=== PATIENT | male | born 1980 | race American Indian/Alaskan Native ===

== ENCOUNTER 2018-03-07 05:58 | Day surgery (SDC) | payer MEDICARE ==
[~2018-03-07 05:58] MED LIST: NACL 0.9% 1000 ML 1,000 ML IV SCH; VERSED IV NR
[2018-03-07] MEDS ORDERED: VANCOMYCIN/NS 1 GM/250 ML 1 GM/250 ML BAG IV NR (06:00)
[2018-03-07] MEDS ORDERED: NACL 0.9% 1000 ML 1,000 ML IV SCH (06:00)
[2018-03-07 07:09] LABS: Basophils # (Auto) 0.1 K/mm3 (0.0-0.1); Basophils % (Auto) 0.8 % (0.0-1.8); Eosinophils # (Auto) 0.2 K/mm3 (0.0-0.4); Eosinophils % (Auto) 2.3 % (0.0-4.3); Hematocrit 38.4 % (35.5-45.6); Hemoglobin 12.9 gm/dl (11.8-15.2); Lymphocytes # (Auto) 1.4 K/mm3 (1.2-5.4); Mean Corpuscular HGB Conc 34 % (32-34); Mean Corpuscular Hemoglobin 32 pg (28-32); Mean Corpuscular Volume 94 fl (84-94); Monocytes # (Auto) 0.7 K/mm3 (0.0-0.8); Monocytes % (Auto) 7.1 % (0.0-7.3); Platelet Count 152 K/mm3 (140-440); Red Blood Count 4.08 M/mm3 (3.65-5.03); Red Cell Distribution Width 13.9 % (13.2-15.2)
[2018-03-07] MEDS ORDERED: HEPARIN 10,000 UNITS/10 ML ONE (07:19)
[2018-03-07] MEDS ORDERED: MARCAINE 0.5% 30 ML INFILTRATI ONE (07:19)
[2018-03-07] MEDS ORDERED: NACL 0.9% 500 ML 500 ML ONE (07:20)
[2018-03-07 07:21] LABS: Calcium 9.1 mg/dL (8.4-10.2)
[2018-03-07] MEDS ORDERED: XYLOCAINE MPF 2% ONE (07:23)
[2018-03-07] MEDS ORDERED: DIPRIVAN 10 MG/ML IV ONE (07:23)
[2018-03-07] MEDS ORDERED: ZOFRAN ONE (07:24)
[2018-03-07] MEDS ORDERED: DILAUDID ONE ×2 (07:24→09:36)
[2018-03-07] MEDS ORDERED: DECADRON ONE (07:24)
[2018-03-07] MEDS ORDERED: RIFADIN ONE (07:24)
[2018-03-07] MEDS ORDERED: NACL 0.9% 100 ML ONE (07:26)
--- NOTE | 2018-03-07 07:26 | Anesthesia Day of Surgery ---
Anesthesia Day of Surgery - Day of Surgery Patient Examined: Yes Patient H&P Reviewed: Yes Patient is NPO: Yes
--- NOTE | 2018-03-07 07:31 | Anesthesia Consultation ---
Anesthesia Consult and Med Hx Date of service: 03/07/18 - Airway Anesthetic Teeth Evaluation: Good ROM Head & Neck: Adequate Mental/Hyoid Distance: Adequate Mallampati Class: Class IV Intubation Access Assessment: Possibly Difficult - Pulmonary Exam CTA: Yes - Cardiac Exam Cardiac Exam: RRR - Pre-Operative Health Status ASA Pre-Surgery Classification: ASA3 Proposed Anesthetic Plan: General - Pulmonary SOB: Yes (OCCASIONAL SOB W/EXERTION) Hx Sleep Apnea: Yes (NO CPAP) - Cardiovascular System Hx Hypertension: Yes (CHF, HL) - Gastrointestinal Hx Gastroesophageal Reflux Disease: Yes (MILD) - Endocrine Hx Renal Disease: Yes (ESRD) Hx End Stage Renal Disease: Yes - Hematic Hx Anemia: Yes - Other Systems Hx Alcohol Use: No Hx Substance Use: No
[2018-03-07] MEDS ORDERED: SUBLIMAZE IV PRN (07:43)
[2018-03-07] MEDS ORDERED: ZOFRAN IV PRN (07:43)
[2018-03-07] MEDS ORDERED: XYLOCAINE 1% 20 mL ONE (09:19)
[2018-03-07] MEDS ORDERED: PAPAVERINE ONE (09:21)
[2018-03-07] MEDS ORDERED: PROTAMINE SULFATE ONE (09:21)
[2018-03-07] MEDS ORDERED: SODIUM BICARBONATE ONE (09:22)
[2018-03-07] MEDS ORDERED: NITROGLYCERIN SYRINGE 3 ML ONE (09:22)
[2018-03-07] MEDS ORDERED: NACL 0.9% IR ONE ×2 (09:43)
[2018-03-07] MEDS ORDERED: MARCAINE 0.5% INFILTRATI ONE (09:43)
[2018-03-07] MEDS ORDERED: NACL 0.9% 500 ML IRRIGATION ONE (09:43)
[2018-03-07] MEDS ORDERED: XYLOCAINE 1% 20 mL INFILTRATI ONE (09:44)
[2018-03-07] MEDS ORDERED: HEPARIN 10,000 UNITS/10 ML IV ONE (09:45)
[2018-03-07] MEDS ORDERED: NACL 0.9% IV ONE (10:12)
[2018-03-07] MEDS ORDERED: RIFADIN IV ONE (10:14)
[2018-03-07] MEDS ORDERED: NEO SYNEPHRINE/NS Syringe(OR USE) IV ONE (11:13)
--- NOTE | 2018-03-07 11:27 | Short Stay Summary ---
Short Stay Documentation Date of service: 03/07/18 Narrative H&P: See H&P - History H&P: obtained from office - Allergies and Medications Current Medications: Allergies amoxicillin [Amoxicillin] Allergy (Verified 06/25/13 12:22) Rash Home Medications Medication Instructions Recorded Confirmed Last Taken Type Cinacalcet [Sensipar] 30 mg PO QDAY 06/25/13 03/07/18 03/06/18 21:00 History Docusate Sodium [Colace CAP] 100 mg PO BID PRN 06/25/13 03/07/18 06/25/13 16:00 History Furosemide [Furosemide ORAL LIQ] 80 mg PO BID 06/25/13 03/07/18 03/06/18 21:00 History Hydralazine HCl [hydrALAZINE] 100 mg PO Q12H 06/25/13 03/07/18 03/06/18 21:00 History Hydrocodone Bit/Acetaminophen 1 each PO Q6HR PRN 06/25/13 03/07/18 06/25/13 16: 00 History [Vicodin 5/500] Isosorbide Dinitrate 30 mg PO TID 06/25/13 03/07/18 03/06/18 21:00 History Lisinopril [Zestril TAB] 40 mg PO QDAY 06/25/13 03/07/18 03/06/18 21:00 History NIFEdipine XL [Procardia Xl] 60 mg PO QDAY 06/25/13 03/07/18 03/06/18 21:00 History Paricalcitol [Zemplar] 2 mcg PO DAILY 06/25/13 03/07/18 03/06/18 21:00 History Simvastatin 20 mg PO QHS 06/25/13 03/07/18 03/06/18 21:00 History Hydrocodone Bit/Acetaminophen 1 each PO Q6H PRN #60 tablet 06/26/13 03/07/18 Unknown Rx [Lortab 7.5-500 mg] Active Medications Fentanyl (Sublimaze) 50 mcg IV Q5MIN PRN PRN Reason: Pain , Severe (7-10) Stop: 03/07/18 18:00 Vancomycin HCl (Vancomycin/Ns 1 Gm/250 Ml) 1 gm in 250 mls @ 166.667 mls/hr IV PREOP NR; Protocol Stop: 03/07/18 18:00 Last Admin: 03/07/18 07:47 Dose: 166.667 mls/hr Sodium Chloride (Nacl 0.9% 1000 Ml) 1,000 mls @ 100 mls/hr IV DIRECT HARVINDER Last Admin: 03/07/18 07:00 Dose: 100 mls/hr Midazolam HCl (Versed) 2 mg IV PREOP NR Stop: 03/07/18 23:59 Last Admin: 03/07/18 07:43 Dose: 2 mg Ondansetron HCl (Zofran) 4 mg IV ONCE PRN PRN Reason: Nausea And Vomiting Stop: 03/07/18 16:00 - Brief post op/procedure progress note Date of procedure: 03/07/18 Pre-op diagnosis: Complications of Dialysis Access Post-op diagnosis: same Procedure: Revision of Left Arm AV Fistula With Interposition 7 Mm Bovine Graft Anesthesia: JOSEPHINE Surgeon: KALE VAZQUEZ Estimated blood loss: minimal Pathology: list (left arm AV fistula pseudoaneurysm) Specimen disposition: to lab Condition: stable - Disposition Condition at discharge: Good Disposition: [id number] TO HOME OR SELFCARE Short Stay Discharge Plan Activity: other (no heavy lifting left arm, beginning tomorrow okay to use the left arm AV fistula for dialysis) Wound: open to air, keep clean and dry, other (okay to wash the wound with soap and water but do not soak in water) Follow up with: KALE VAZQUEZ MD [Staff Physician] - 14 Days Prescriptions: HYDROcodone/APAP 7.5-325 [[place] 7.5/325] 1 each PO Q6HR PRN #40 tablet PRN Reason: Pain
--- NOTE | 2018-03-07 11:37 | Operative Report ---
Operative Report Operative Report: Date of Procedure: 03/07/2018 Pre-operative Diagnosis: Complications of Dialysis Access Post-operative Diagnosis: Same Procedure(s): 1. Revision of Left Arm AV Fistula with Interposition 7 mm Bovine Graft Surgeon: Emerson Antunez M.D. Fiscal Technician: Kenny Anesthesia: Gen. Endotracheal Anesthesia EBL: Minimal Counts: Correct Complications: None Condition: Stable Findings: Left AV fistula with palpable thrill at the completion of the case. Specimen: Left arm AV fistula pseudoaneurysm sent to pathology. Indication: The patient is a 37-year-old male with history of end-stage renal disease who is currently on hemodialysis through a left arm AV fistula. He has an enlarging pseudoaneurysm that has thinning of the skin with ulceration. He had angioplasty of the venous outflow stenosis to relieve pressure on the fistula and now is in need of revision of the pseudoaneurysm to decrease the risk of hemorrhage from the ulceration. He was given the risk, benefits, and alternative procedures and consented to the procedure. Description of Procedure: The patient was brought to the operating room and laid in supine position. After general endotracheal anesthesia was achieved his left arm was prepped and draped in normal sterile fashion. A longitudinal incision was created extending from just proximal to the pseudoaneurysm and just distal to the pseudoaneurysm and slightly medial to the pseudoaneurysm. Sharp dissection was used to carry the incision down to the fistula both proximal and distal to the pseudoaneurysm and the fistula was dissected circumferentially controlled with vessel loops at both the arterial and venous outflow. Sharp dissection was then used to dissect the pseudoaneurysm way from the overlying skin. Angled DeBakey mesh were then used to control the venous outflow as well as the arterial flow and then the pseudoaneurysm was transected and passed off. A a Layne-Wijillian tunneler was then used to create a subcutaneous tunnel along the lateral skin edge and then a 7 mm bovine graft, that have been soaked in rifampin, was pulled through the tunnel. Both the arterial inflow the fistula and the graft were beveled and then an end to end anastomosis was created using 2 6-0 Prolenes in running fashion. The graft was then cut to length and the venous and as well as the graft were beveled and an end to end anastomosis was created using 2 6-0 Prolenes in running fashion. Prior to completing the anastomosis the venous outflow as well as the arterial inflow or flushed and then the anastomosis was completed. Hemostasis within the wound was achieved with a combination of cautery and direct pressure. Once hemostasis was achieved the wound was anesthetized with 0.5% Marcaine and then closed in 2 layers using a 3-0 Vicryl in a running fashion in the deep dermal layer and a 4- 0 Monocryl in a running fashion subcuticular and dressed with Dermabond. The patient tolerated the procedure well. All sponge, needle, and instrument counts were correct. The patient was taken to the recovery area in stable condition.
[2018-03-07] MEDS ORDERED: NORCO 7.5/325 PO PRN (11:47)
[2018-03-07 14:06] VITALS: BP 137/87
== END 2018-03-07 14:05 | disposition home or self-care (01) ==
LOC: OR 05:58
PROVIDERS: ATTEND Surgery Vascular Surgery
DX: T82.898A Other specified complication of vascular prosthetic devices, implants and grafts, initial encounter (principal); I13.2 Hypertensive heart and chronic kidney disease with heart failure and with stage 5 chronic kidney disease, or end stage renal disease; N18.6 End stage renal disease; I50.9 Heart failure, unspecified; E78.00 Pure hypercholesterolemia, unspecified; K21.9 Gastro-esophageal reflux disease without esophagitis; G47.30 Sleep apnea, unspecified; Y83.2 Surgical operation with anastomosis, bypass or graft as the cause of abnormal reaction of the patient, or of later complication, without mention of misadventure at the time of the procedure
CPT/HCPCS: 36415; 36832; 80048; 85025; 88304; 88311; C1768; J1100; J1170; J1644; J2250; J2370; J2405; J2704; J3370; J3490; J7030; J7040; J2440; J2720